=== PATIENT | male | born 1950 | race Caucasian/White ===

== ENCOUNTER 2017-04-20 11:44 | Outpatient (RCR) | payer MEDICARE, OTHER | END 2017-07-19 | disposition home or self-care (01) | LOC: CARDREHAB | DX: Z48.812 Encounter for surgical aftercare following surgery on the circulatory system (principal); Z95.5 Presence of coronary angioplasty implant and graft; I21.4 Non-ST elevation (NSTEMI) myocardial infarction ==

== ENCOUNTER 2017-07-21 12:00 | Outpatient (RCR) | payer MEDICARE, OTHER | END 2017-10-19 | disposition home or self-care (01) | LOC: CARDREHAB | DX: Z48.812 Encounter for surgical aftercare following surgery on the circulatory system (principal); Z95.5 Presence of coronary angioplasty implant and graft; I25.2 Old myocardial infarction ==